=== PATIENT | male | born 1960 | race Two or more races ===

== ENCOUNTER 2019-11-21 12:30 | Emergency (ER) | payer OTHER ==
[~2019-11-21] VITALS: Ht 177.8 cm; Wt 81.6 kg
[2019-11-21] MEDS ORDERED: SODIUM CHLORIDE 0.9% 1,000 ML IV ONE ×2 (12:39)
[2019-11-21] MEDS ORDERED: TETANUS-DIPTH-ACEL PERTUSSIS 0.5ML SYR Tdap IM ONE (12:45)
[2019-11-21 13:11] LABS: Basophils # (auto) 0 10 ^3/uL (0-0.2); Eosinophils # (auto) 0 10 ^3/uL (0-0.8); Lymphocytes # (auto) 1.1 10 ^3/uL (0.4-5.4); Mean Corpuscular Hemoglobin 33.9 pg (28.0-32.0); Mean Corpuscular Hgb Conc. 33.2 g/dL (32.0-36.0); Neutrophils # (auto) 3.4 10 ^3/uL (1.6-8.6); Platelet Count (auto) 150 10^3/uL (140-450)
[2019-11-21 13:13] LABS: Basophils % (auto) 0.8 % (0.0-2.0); Eosinophils % (auto) 0.8 % (0.0-7.0); Hematocrit 42.8 % (41.0-53.0); Hemoglobin 14.2 g/dL (13.5-17.5); Lymphocytes % (auto) 21.9 % (10.0-50.0); Mean Corpuscular Volume 102.2 fL (80.0-100.0); Monocytes # (auto) 0.5 10 ^3/uL (0-1.3); Neutrophils % (auto) 66.5 % (37.0-80.0); Red Blood Cells 4.19 10^6/uL (4.5-5.90); Red Cell Distribution Width 13.4 % (11.8-14.3); White Blood Cell 5.1 10^3/uL (4.4-10.8)
[2019-11-21 13:29] LABS: Alanine Aminotransferase 293 U/L (16-61); Albumin 2.8 g/dL (3.4-5.0); Anion Gap 9 (5-15); Aspartate Aminotransferase 380 U/L (15-37); BUN/Creatinine Ratio 8.7; Blood Urea Nitrogen 9 mg/dL (7-18); Calcium 8.4 mg/dL (8.5-10.1); Carbon Dioxide 29 mmol/L (21-32); Chloride 101 mmol/L (98-107); GFR African American 96 mL/min; GFR Non-African American 79 mL/min; Glucose 92 mg/dL (74-106); Potassium 3.2 mmol/L (3.5-5.1); Sodium 139 mmol/L (136-145)
[2019-11-21 13:33] LABS: Alkaline Phosphatase 119 U/L (45-117); Bilirubin, Total 0.9 mg/dL (0.2-1.0); Total Protein 7.5 g/dL (6.4-8.2)
[2019-11-21] MEDS ORDERED: IOHEXOL 300 MG/ML 100ML BOTTLE IJ ONE (13:57)
[2019-11-21] MEDS ORDERED: POTASSIUM EFFERVESENT TAB 25 MEQ PO ONE (15:00)
[2019-11-21 15:40] VITALS: BP 130/94
== END 2019-11-21 14:58 | disposition home or self-care (01) ==
LOC: EDBD 12:30 → ER 12:30
DX: S21.219A Laceration without foreign body of unspecified back wall of thorax without penetration into thoracic cavity, initial encounter (principal); I10 Essential (primary) hypertension; F17.210 Nicotine dependence, cigarettes, uncomplicated; E87.6 Hypokalemia; W45.8XXA Other foreign body or object entering through skin, initial encounter; Y93.89 Activity, other specified; Y92.89 Other specified places as the place of occurrence of the external cause; Y99.8 Other external cause status
CPT/HCPCS: 12002; 36415; 71260; 80053; 84484; 85025; 90471; 90715; 96360; 99285; J7030; Q9967

== ENCOUNTER 2019-11-30 10:49 | Emergency (ER) | payer OTHER ==
[~2019-11-30] VITALS: Ht 175.3 cm; Wt 63.5 kg
[2019-11-30 10:53] VITALS: BP 155/78
== END 2019-11-30 11:54 | disposition home or self-care (01) ==
LOC: ER 10:49
DX: S21.201D Unspecified open wound of right back wall of thorax without penetration into thoracic cavity, subsequent encounter (principal); I10 Essential (primary) hypertension; F17.210 Nicotine dependence, cigarettes, uncomplicated; X58.XXXD Exposure to other specified factors, subsequent encounter
CPT/HCPCS: 10060

== ENCOUNTER 2020-09-04 10:33 | Emergency (ER) | payer OTHER ==
[~2020-09-04] VITALS: Ht 180.3 cm; Wt 81.6 kg
[2020-09-04] MEDS ORDERED: SODIUM CHLORIDE 0.9% 1,000 ML IV ONE ×2 (10:45)
[2020-09-04 11:21] LABS: Basophils # (auto) 0.1 10 ^3/uL (0-0.2); Basophils % (auto) 2.5 % (0.0-2.0); Eosinophils # (auto) 0.1 10 ^3/uL (0-0.8); Eosinophils % (auto) 2.6 % (0.0-7.0); Hematocrit 40.6 % (41.0-53.0); Hemoglobin 13.8 g/dL (13.5-17.5); Lymphocytes # (auto) 1.4 10 ^3/uL (0.4-5.4); Lymphocytes % (auto) 32.7 % (10.0-50.0); Mean Corpuscular Hemoglobin 31.7 pg (28.0-32.0); Mean Corpuscular Volume 93.2 fL (80.0-100.0); Monocytes # (auto) 0.6 10 ^3/uL (0-1.3); Monocytes % (auto) 14.5 % (0.0-12.0); Neutrophils % (auto) 47.7 % (37.0-80.0); Nucleated Red Blood Cells % 0.1 %; Platelet Count (auto) 115 10^3/uL (140-450); Red Blood Cells 4.36 10^6/uL (4.5-5.90); Red Cell Distribution Width 14.8 % (11.8-14.3); White Blood Cell 4.2 10^3/uL (4.4-10.8)
[2020-09-04 11:42] LABS: Anion Gap 8 (5-15); Blood Urea Nitrogen 9 mg/dL (7-18); Calcium 8.6 mg/dL (8.5-10.1); Carbon Dioxide 25 mmol/L (21-32); Chloride 105 mmol/L (98-107); Glucose 91 mg/dL (74-106); Potassium 3.4 mmol/L (3.5-5.1); Sodium 138 mmol/L (136-145)
[2020-09-04 11:48] LABS: Alanine Aminotransferase 107 U/L (16-61); Alkaline Phosphatase 132 U/L (45-117); Aspartate Aminotransferase 132 U/L (15-37); BUN/Creatinine Ratio 16.4; Bilirubin, Total 0.8 mg/dL (0.2-1.0); GFR African American 197 mL/min; GFR Non-African American 163 mL/min; Total Protein 7.8 g/dL (6.4-8.2)
[2020-09-04 12:23] LABS: Urine Bacteria NONE SEEN /hpf (None Seen); Urine Blood 1+ /uL (Negative); Urine Specific Gravity 1.017 (1.001-1.035); Urine WBC 1 /hpf (0 - 3)
[2020-09-04 12:33] LABS: Amphetamine Screen, Urine POSITIVE (NEGATIVE); Barbiturate Scree,Urine NEGATIVE (NEGATIVE); Benzodiazephine Screen, Urine POSITIVE (NEGATIVE); Cannabinoid Screen, Urine NEGATIVE (NEGATIVE); Cocaine Screen, Urine NEGATIVE (NEGATIVE); Opiate Scree,Urine NEGATIVE (NEGATIVE); Phencyclidine Screen, Urine NEGATIVE (NEGATIVE)
[2020-09-05 08:00] VITALS: BP 112/81
== END 2020-09-05 09:30 | disposition home or self-care (01) ==
LOC: ER 10:33 → EDBD 10:33 → ER 09-05 09:30
DX: G93.41 Metabolic encephalopathy (principal); R74.8 Abnormal levels of other serum enzymes; E44.1 Mild protein-calorie malnutrition; F11.20 Opioid dependence, uncomplicated; F17.210 Nicotine dependence, cigarettes, uncomplicated; R41.82 Altered mental status, unspecified; Z68.25 Body mass index [BMI] 25.0-25.9, adult
CPT/HCPCS: 36415; 70450; 71045; 80053; 80307; 81001; 84484; 85025; 96360; 96361; 99285; J7030

== ENCOUNTER 2020-11-03 17:31 | Emergency (ER) | payer OTHER ==
[~2020-11-03] VITALS: Ht 175.3 cm; Wt 63.0 kg
[2020-11-03 17:34] VITALS: BP 149/73
[2020-11-03 18:57] LABS: Basophils # (auto) 0.1 10 ^3/uL (0-0.2); Basophils % (auto) 2.1 % (0.0-2.0); Eosinophils # (auto) 0.1 10 ^3/uL (0-0.8); Hematocrit 39.7 % (41.0-53.0); Hemoglobin 13.4 g/dL (13.5-17.5); Lymphocytes # (auto) 1.2 10 ^3/uL (0.4-5.4); Lymphocytes % (auto) 25.7 % (10.0-50.0); Mean Corpuscular Hemoglobin 31.7 pg (28.0-32.0); Mean Corpuscular Hgb Conc. 33.7 g/dL (32.0-36.0); Monocytes # (auto) 0.4 10 ^3/uL (0-1.3); Monocytes % (auto) 9.4 % (0.0-12.0); Neutrophils # (auto) 2.8 10 ^3/uL (1.6-8.6); Neutrophils % (auto) 60.8 % (37.0-80.0); Nucleated Red Blood Cells % 0.1 %; Red Blood Cells 4.22 10^6/uL (4.5-5.90); Red Cell Distribution Width 15.5 % (11.8-14.3); White Blood Cell 4.7 10^3/uL (4.4-10.8)
[2020-11-03 19:15] LABS: Albumin 3.3 g/dL (3.4-5.0); Anion Gap 9 (5-15); BUN/Creatinine Ratio 22.2; Blood Urea Nitrogen 12 mg/dL (7-18); Calcium 8.5 mg/dL (8.5-10.1); Carbon Dioxide 25 mmol/L (21-32); Chloride 109 mmol/L (98-107); GFR African American 201 mL/min; GFR Non-African American 166 mL/min; Glucose 92 mg/dL (74-106); Potassium 3.7 mmol/L (3.5-5.1); Sodium 143 mmol/L (136-145)
[2020-11-03 19:20] LABS: Alanine Aminotransferase 126 U/L (16-61); Alkaline Phosphatase 151 U/L (45-117); Aspartate Aminotransferase 197 U/L (15-37); Bilirubin, Total 0.6 mg/dL (0.2-1.0); Total Protein 7.8 g/dL (6.4-8.2)
[2020-11-03] MEDS ORDERED: SODIUM CHLORIDE 0.9% 1,000 ML IV ONE (21:00)
== END 2020-11-03 22:21 | disposition left against medical advice (07) ==
LOC: ER 17:31
DX: R53.1 Weakness (principal); Z53.21 Procedure and treatment not carried out due to patient leaving prior to being seen by health care provider
CPT/HCPCS: 36415; 80053; 83735; 84484; 85025; 93005

== ENCOUNTER 2021-05-17 16:10 | Emergency (ER) | payer OTHER ==
[~2021-05-17] VITALS: Ht 175.3 cm; Wt 54.4 kg
[2021-05-17 16:44] VITALS: BP 135/91
[2021-05-17] MEDS ORDERED: LIDOCAINE 1% HCL (LOCAL ANESTH.) INJ 20ML MDV IJ ONE (17:00)
[2021-05-17] MEDS ORDERED: KETOROLAC TROMETH 60MG/2ML VIAL IM ONE (18:15)
== END 2021-05-17 18:17 | disposition home or self-care (01) ==
LOC: ER 16:22
DX: M51.37 Other intervertebral disc degeneration, lumbosacral region (principal); M54.16 Radiculopathy, lumbar region; F17.210 Nicotine dependence, cigarettes, uncomplicated; X50.1XXA Overexertion from prolonged static or awkward postures, initial encounter; Y93.89 Activity, other specified; Y92.89 Other specified places as the place of occurrence of the external cause; Y99.8 Other external cause status
CPT/HCPCS: 72100; 96372; 99283; J1885

== ENCOUNTER 2021-12-13 11:05 | Emergency (ER) | payer OTHER ==
[~2021-12-13] VITALS: Ht 175.3 cm; Wt 59.2 kg
[2021-12-13 12:35] VITALS: BP 155/106
[2021-12-13] MEDS ORDERED: KETOROLAC TROMETH 60MG/2ML VIAL IM ONE (13:00)
[2021-12-13] MEDS ORDERED: TRAM-297 PO (13:01)
[2021-12-13] MEDS ORDERED: PRED20TA2 PO (13:01)
== END 2021-12-13 13:36 | disposition home or self-care (01) ==
LOC: ER 11:05
DX: G89.29 Other chronic pain (principal); M54.42 Lumbago with sciatica, left side; F17.210 Nicotine dependence, cigarettes, uncomplicated
CPT/HCPCS: 96372; 99283; J1885

== ENCOUNTER 2022-01-08 10:59 | Emergency (ER) | payer OTHER ==
[~2022-01-08] VITALS: Ht 175.3 cm; Wt 60.6 kg
[~2022-01-08 10:59] MED LIST: PRED20TA2 PO; TRAM-297 PO
[2022-01-08 12:15] VITALS: BP 128/81
[2022-01-08] MEDS ORDERED: NAP500T PO (12:26)
[2022-01-08] MEDS ORDERED: KETOROLAC TROMETH 60MG/2ML VIAL IM ONE (12:30)
== END 2022-01-08 12:43 | disposition home or self-care (01) ==
LOC: ER 10:59
DX: G89.29 Other chronic pain (principal); M54.50 Low back pain, unspecified; F17.210 Nicotine dependence, cigarettes, uncomplicated; Z79.899 Other long term (current) drug therapy
CPT/HCPCS: 96372; 99283; J1885

== ENCOUNTER 2022-01-12 09:24 | Emergency (ER) | payer OTHER ==
[~2022-01-12] VITALS: Ht 172.7 cm; Wt 62.0 kg
[~2022-01-12 09:24] MED LIST changes: +NAP500T PO
[2022-01-12 10:38] VITALS: BP 102/58
[2022-01-12] MEDS ORDERED: IBUP800T27 PO (11:03)
[2022-01-12] MEDS ORDERED: PRED20TA2 PO (11:03)
[2022-01-12] MEDS ORDERED: KETOROLAC TROMETH 60MG/2ML VIAL IM ONE (11:15)
== END 2022-01-12 11:24 | disposition home or self-care (01) ==
LOC: ER 09:24
DX: G89.29 Other chronic pain (principal); M54.59 Other low back pain; F17.210 Nicotine dependence, cigarettes, uncomplicated
CPT/HCPCS: 96372; 99283; J1885

== ENCOUNTER → 2022-02-12 | Emergency (ER) | payer OTHER ==
[~2022-02-12] VITALS: Ht 170.2 cm; Wt 66.0 kg
[~2022-02-12] MED LIST changes: +IBUP800T27 PO; +MAGNESIUM SULFATE 1GM/100ML 100 ML IV SCH; +SODIUM CHLORIDE 0.9% 1,000 ML IV ONE; +SODIUM CHLORIDE 0.9% 500 ML IVB ONE
[2022-02-12 12:30] LABS: Albumin 2.6 g/dL (3.4-5.0); Anion Gap 8 (5-15); Blood Alcohol < 3.0 mg/dL (0-5); Blood Urea Nitrogen 11 mg/dL (7-18); Calcium 8.8 mg/dL (8.5-10.1); Carbon Dioxide 26 mmol/L (21-32); Chloride 105 mmol/L (98-107); Glucose 90 mg/dL (74-106); Potassium 3.9 mmol/L (3.5-5.1); Sodium 139 mmol/L (136-145)
[2022-02-12 12:33] LABS: Alanine Aminotransferase 127 U/L (16-61); Alkaline Phosphatase 146 U/L (45-117); Aspartate Aminotransferase 145 U/L (15-37); BUN/Creatinine Ratio 13.4; GFR African American 124 mL/min; GFR Non-African American 102 mL/min; Total Protein 7.3 g/dL (6.4-8.2)
[2022-02-12 13:01] LABS: Lactic Acid w/Reflex 2.6 mmol/L (0.4-2.0)
[2022-02-12 13:02] LABS: Eosinophils # (auto) 0.1 10 ^3/uL (0-0.8); Hemoglobin 10.1 g/dL (13.5-17.5); Nucleated Red Blood Cells % 0.2 %; Red Blood Cells 2.84 10^6/uL (4.5-5.90)
[2022-02-12 13:04] LABS: Basophils # (auto) 0.1 10 ^3/uL (0-0.2); Basophils % (auto) 0.9 % (0.0-2.0); Eosinophils % (auto) 0.8 % (0.0-7.0); Hematocrit 30.1 % (41.0-53.0); Lymphocytes # (auto) 1.1 10 ^3/uL (0.4-5.4); Lymphocytes % (auto) 10.6 % (10.0-50.0); Mean Corpuscular Hemoglobin 35.5 pg (28.0-32.0); Mean Corpuscular Hgb Conc. 33.6 g/dL (32.0-36.0); Mean Corpuscular Volume 105.8 fL (80.0-100.0); Monocytes % (auto) 9.7 % (0.0-12.0); Neutrophils # (auto) 7.8 10 ^3/uL (1.6-8.6); Red Cell Distribution Width 19.9 % (11.8-14.3)
[2022-02-12 14:17] LABS: Urine Bacteria NONE SEEN /hpf (None Seen); Urine Blood Negative /uL (Negative); Urine Specific Gravity 1.007 (1.001-1.035); Urine WBC <1 /hpf (0 - 3)
[2022-02-12 14:30] LABS: Alcohol, Urine < 3.0 mg/dL (0-10); Amphetamine Screen, Urine NEGATIVE (NEGATIVE); Barbiturate Scree,Urine NEGATIVE (NEGATIVE); Benzodiazephine Screen, Urine NEGATIVE (NEGATIVE); Cannabinoid Screen, Urine NEGATIVE (NEGATIVE); Cocaine Screen, Urine NEGATIVE (NEGATIVE); Opiate Scree,Urine NEGATIVE (NEGATIVE); Phencyclidine Screen, Urine NEGATIVE (NEGATIVE)
[2022-02-12 20:50] VITALS: BP 99/65
== END | disposition home or self-care (01) ==
LOC: EDUNIT# 11:03 → ER 11:08 → EDBD 11:08
DX: T42.4X1A Poisoning by benzodiazepines, accidental (unintentional), initial encounter (principal); R41.82 Altered mental status, unspecified; D64.9 Anemia, unspecified; E83.42 Hypomagnesemia; E80.6 Other disorders of bilirubin metabolism; E46 Unspecified protein-calorie malnutrition; F19.90 Other psychoactive substance use, unspecified, uncomplicated; F17.210 Nicotine dependence, cigarettes, uncomplicated; Z68.22 Body mass index [BMI] 22.0-22.9, adult; Z79.1 Long term (current) use of non-steroidal anti-inflammatories (NSAID); Z79.899 Other long term (current) drug therapy; Y92.89 Other specified places as the place of occurrence of the external cause; Z20.822 Contact with and (suspected) exposure to COVID-19
CPT/HCPCS: 36415; 70450; 71045; 80053; 80307; 80320; 81001; 82140; 82550; 82962; 83605; 83735; 84484; 85025; 87426; 93005; 96361; 96365; 99285; J3475; J7030; J7040

== ENCOUNTER 2022-04-02 14:24 | Inpatient (IN) | payer OTHER ==
[~2022-04-02] VITALS: Ht 172.7 cm; Wt 65.0 kg
[~2022-04-02 14:24] MED LIST changes: -MAGNESIUM SULFATE 1GM/100ML 100 ML IV SCH; -SODIUM CHLORIDE 0.9% 1,000 ML IV ONE; -SODIUM CHLORIDE 0.9% 500 ML IVB ONE
[2022-04-02] MEDS ORDERED: EPINEPHrine HCL 1 MG/10 ML SYRG IV ONE (14:57)
[2022-04-02 15:37] LABS: Basophils # (auto) 0.2 10 ^3/uL (0-0.2); Basophils % (auto) 1.4 % (0.0-2.0); Eosinophils # (auto) 0 10 ^3/uL (0-0.8); Eosinophils % (auto) 0.2 % (0.0-7.0); Hematocrit 31.9 % (41.0-53.0); Hemoglobin 10.4 g/dL (13.5-17.5); Lymphocytes # (auto) 1.8 10 ^3/uL (0.4-5.4); Lymphocytes % (auto) 15.3 % (10.0-50.0); Mean Corpuscular Hemoglobin 32.8 pg (28.0-32.0); Mean Corpuscular Hgb Conc. 32.6 g/dL (32.0-36.0); Mean Corpuscular Volume 100.6 fL (80.0-100.0); Monocytes % (auto) 8.5 % (0.0-12.0); Neutrophils # (auto) 8.6 10 ^3/uL (1.6-8.6); Neutrophils % (auto) 74.6 % (37.0-80.0); Nucleated Red Blood Cells % 0.1 %; Red Blood Cells 3.17 10^6/uL (4.5-5.90); Red Cell Distribution Width 15.7 % (11.8-14.3); White Blood Cell 11.5 10^3/uL (4.4-10.8)
[2022-04-02 15:51] LABS: Albumin 1.9 g/dL (3.4-5.0); BUN/Creatinine Ratio 17.9; Calcium 8.8 mg/dL (8.5-10.1); Potassium 5.3 mmol/L (3.5-5.1)
[2022-04-02 15:53] LABS: INR 2.04 (0.9-1.15); Partial Thromboplastin Time 38.4 sec (24.6-33.4)
[2022-04-02 15:57] LABS: Lactic Acid w/Reflex 6.9 mmol/L (0.4-2.0)
[2022-04-02 16:00] LABS: Bilirubin, Total 4.2 mg/dL (0.2-1.0); Total Protein 6.3 g/dL (6.4-8.2)
[2022-04-02] MEDS ORDERED: SODIUM ZIRCONIUM CYCL 10 GM PAK PO ONE (16:30)
[2022-04-02] MEDS ORDERED: InsuLIN REG 1unit/0.01ml Soln (100units/ml) IV ONE (16:30)
[2022-04-02] MEDS ORDERED: PIPERACILLIN-TAZOB 3.375GM 100 ML IV ONE (16:30)
[2022-04-02] MEDS ORDERED: FUROSEMIDE 20 MG/2 ML VIAL IV ONE (16:30)
[2022-04-02] MEDS ORDERED: SODIUM BICARBONATE 8.4% INJ 50ML SYRINGE IV ONE (16:30)
[2022-04-02] MEDS ORDERED: LACTULOSE 20Gm/30ML SOLN PO ONE (16:30)
[2022-04-02] MEDS ORDERED: CALCIUM GLUC 1,000mg/50ml-NS 50 ML IV ONE (16:30)
[2022-04-02] MEDS ORDERED: ALBUTEROL SULF 2.5 MG/0.5ML(0.5%) NEB SOLN NEB ONE (16:30)
[2022-04-02] MEDS ORDERED: DEXTROSE (50%) 50ML SYRG IV ONE (16:30)
[2022-04-02] MEDS ORDERED: SODIUM BICARBONATE 8.4 % INJ 50ML VIAL IV ONE (17:02)
[2022-04-02] MEDS ORDERED: NITROGLYCERIN 0.4 MG SL TAB SL PRN (18:00)
[2022-04-02] MEDS ORDERED: MORPHINE SULFATE INJ 2 MG/ml SYRG IV PRN (18:00)
[2022-04-02] MEDS ORDERED: PIPERACILLIN-TAZOB 3.375GM 100 ML IV SCH (18:00)
[2022-04-02 18:15] LABS: Urine WBC None Seen /hpf (0 - 3)
[2022-04-02 18:46] LABS: Urine Bacteria FEW /hpf (None Seen); Urine Blood Negative /uL (Negative); Urine Hyaline Cast MANY /lpf (0 - 2); Urine Mucus FEW (None Seen); Urine Specific Gravity 1.027 (1.001-1.035)
[2022-04-02] MEDS ORDERED: LORazepam 2MG/ML-1ML VIAL ONE (20:16)
[2022-04-02 20:35] VITALS: BP 137/79
[2022-04-02] MEDS ORDERED: LORazepam 2MG/ML-1ML VIAL IV PRN (21:15)
== END 2022-04-02 20:37 | DRG 720 ==
LOC: EDBD 14:24 → ER 14:28 → OVERFLOW 18:01
PROVIDERS: ADMIT Internal Medicine; ATTEND Internal Medicine
PROC: 5A12012 Performance of Cardiac Output, Single, Manual (ICD-10-PCS; principal; 2022-04-02)
DX: A41.9 Sepsis, unspecified organism (principal); I46.9 Cardiac arrest, cause unspecified; N17.9 Acute kidney failure, unspecified; E43 Unspecified severe protein-calorie malnutrition; R18.8 Other ascites; K74.60 Unspecified cirrhosis of liver; F17.210 Nicotine dependence, cigarettes, uncomplicated; E87.5 Hyperkalemia; Z68.21 Body mass index [BMI] 21.0-21.9, adult; Z20.822 Contact with and (suspected) exposure to COVID-19
CPT/HCPCS: 36415; 70450; 71045; 74176; 76705; 80053; 81001; 82140; 82962; 83605; 83880; 84484; 85025; 85610; 85730; 87040; 87426; 92950; 93005; 96365; 96375; 99291; G0378; J1815; J2543